=== PATIENT | female | born 1955 | race Caucasian/White ===

== ENCOUNTER 2019-02-19 03:34 | Emergency (ER) | payer BC ==
[~2019-02-19] VITALS: Ht 160 cm; Wt 80.5 kg
[2019-02-19 03:38] VITALS: Ht 160 cm; Wt 80.5 kg
[2019-02-19] MEDS ORDERED: morphine 4 MG/ML VIAL IM STA (05:00)
[2019-02-19] MEDS ORDERED: DEXAMETHASONE 10 MG/ML 1 ML INJ IM ONE (05:00)
--- NOTE | 2019-02-19 05:00 | ERD ---
ER Documentation Chief Complaint Chief Complaint L SIDE BACK PAIN RADIATING DOWN L LEG HPI This is a 63-year-old female presented to emerge department with complaints of left lower back pain that radiates down to left lower extremity. Denies any injury. Denies headache, head injury, loss of consciousness, dizziness, neck pain, neck stiffness, throat pain, difficulty swallowing, difficulty breathing lying flat, shoulder pain, chest pain, back pain, abdominal pain, nausea, vomiting, constipation, diarrhea, urinary symptoms, or possibility being , loss of bowel and bladder control, trauma, injury, falls, difficulty walking due to pain, numbness or tingling sensation, calf pain, recent travel, recent major surgery in the last 3 weeks, calf pain, recent long travel, recent exposure to any illness, recent antibiotic use in the last 3 months, fever, chills, seizures. Past medical history: Hypertension. Prediabetes. Surgical history: Social: Denies smoking, use of alcoholic beverages, use of illegal drugs. ROS All systems reviewed and are negative except as per history of present illness. Medications Home Meds Active Scripts Omeprazole* (Omeprazole*) 40 Mg Capsule.dr, 40 MG PO DAILY, #30 CAP Prov:PASILABAN,KLAR F 02/19/19 Ibuprofen* (Motrin*) 800 Mg Tab, 800 MG PO Q6H PRN for PAIN AND OR ELEVATED TEMP, #30 TAB Prov:PASILABAN,KLAR F 02/19/19 Cyclobenzaprine Hcl* (Cyclobenzaprine Hcl*) 10 Mg Tablet, 10 MG PO TID PRN for MUSCLE SPASMS, #15 TAB Prov:PASILABAN,KLAR F 02/19/19 Allergies Allergies: Coded Allergies: No Known Allergy (Unverified , 02/19/19) PMhx/Soc History of Surgery: Yes (APPENDECTOMY, TONSILLECTOMY, C-SECTIONS, HYSTERECTOMY) Hx Cardiac Disorders: Yes (HTN) Hx Alcohol Use: No Hx Substance Use: No Hx Tobacco Use: No Smoking Status: Never smoker Physical Exam Vitals Vital Signs Date Temp Pulse Resp B/P (MAP) Pulse Ox O2 O2 Flow FiO2 Time Delivery Rate 02/19/19 97.7 71 16 116/69 98 Room Air 07:11 (85) 02/19/19 97.7 72 18 150/72 95 03:38 (98) Physical Exam Const: No acute distress Head: Atraumatic Eyes: Normal Conjunctiva ENT: Normal External Ears, Nose and Mouth. Neck: Full range of motion. No meningismus. Resp: Clear to auscultation bilaterally Cardio: Regular rate and rhythm, no murmurs Abd: Soft, non tender, non distended. Normal bowel sounds Skin: No petechiae or rashes Back: No midline or flank tenderness. No saddle anesthesia. Ext: No cyanosis, or edema. No calf tenderness bilaterally. No deformities. Positive left straight leg test. Positive left cross straight leg test. Negative right straight leg test. Negative right cross straight leg test. Bilateral hips are stable and unremarkable. No neurovascular deficit. Ambulatory with steady gait. Neur: Awake and alert. No neurological deficits. Psych: Normal Mood and Affect Results 24 hrs Laboratory Tests Test 02/19/19 05:52 Urine Color STRAW Urine Clarity CLEAR Urine pH 7.0 Urine Specific [place] 1.006 Urine Ketones NEGATIVE mg/dL Urine Nitrite NEGATIVE mg/dL Urine Bilirubin NEGATIVE mg/dL Urine Urobilinogen NEGATIVE mg/dL Urine Leukocyte Esterase NEGATIVE Rolando/ul Urine Hemoglobin NEGATIVE mg/dL Urine Glucose NEGATIVE mg/dL Urine Total Protein NEGATIVE mg/dl Current Medications Medications Dose Sig/Angel Start Time Status Last (Trade) Ordered Route PRN Stop Time Admin Dose Reason Admin Morphine 4 mg ONCE STAT 02/19/19 DC 02/19/19 Sulfate IM 05:00 02/19/19 05:20 (morphine) 05:01 10 mg ONCE ONCE 02/19/19 DC 02/19/19 Dexamethasone IM 05:00 02/19/19 05:19 (Decadron) 05:01 25 mg ONCE ONCE 02/19/19 DC 02/19/19 Diphenhydrami IV 06:00 02/19/19 05:45 ne HCl 06:01 (Benadryl) Sodium 500 ml @ Q1H ONCE 02/19/19 DC 02/19/19 Chloride 500 mls/hr IV 06:00 02/19/19 05:45 06:59 Procedures/MDM Diagnostic tests: Urinalysis: Reviewed. Treatment: Dexamethasone IM. Morphine IM. Re-evaluation: Denies chest pain, back pain, abdominal pain, numbness or tingling sensation. No neurovascular deficit. No saddle anesthesia. No neurological deficits. Stated that she feels much better at this time. Patient and family member stated that they are comfortable to go home. Differential diagnosis I have low suspicion for aortic dissection, AAA, kidney stones, obstructing kidney stones, septic stone, cauda equina syndrome, DVT. Final diagnosis: Back pain. Prescription: Motrin. Omeprazole. Flexeril. Follow-up with PCP in the next 24-48 hours. PCP to do an MRI of the L-spine. PCP to refer patient to pain specialist in the next 3 to 5 days. Come back here in the emergency department for any new symptoms or any worsening symptoms. All questions and concerns were answered. Patient and family members verbalized understanding and agreed with plan of care. Hemodynamically stable on discharge. Departure Diagnosis: Primary Impression: Low back pain Additional Impression: Sciatica Condition: Stable Additional Instructions: Follow-up with PCP in the next 24-48 hours. PCP to do an MRI of the L-spine. PCP to refer patient to pain specialist in the next 3 to 5 days. Come back here in the emergency department for any new symptoms or any worsening symptoms. BALBIR GAMING Feb 19, 2019 05:00
[2019-02-19] MEDS ORDERED: CYCL10TA7 PO (05:06)
[2019-02-19] MEDS ORDERED: OMEP40CA6 PO (05:06)
[2019-02-19] MEDS ORDERED: IBUP800T48 PO (05:06)
[2019-02-19] MEDS ORDERED: DIPHENHYDRAMINE 50 MG INJ IV ONE (06:00)
[2019-02-19] MEDS ORDERED: SOD CHLORIDE 0.9% 500 ML IV ONE (06:00)
[2019-02-19 07:11] VITALS: BP 116/69; PULSE 71; RESP 16
== END 2019-02-19 07:13 | disposition home or self-care (01) ==
LOC: FTE 03:34
DX: M54.42 Lumbago with sciatica, left side (principal); I10 Essential (primary) hypertension
CPT/HCPCS: 81003; J1100; J1200; J2270; J7040; 96361; 96372; 96374